=== PATIENT | female | born 1950 ===

== ENCOUNTER 2023-05-03 05:23 | Day surgery (SDC) | payer OTHER ==
[2023-04-27 08:28] LABS: PH,URINE 6.5 (5.0-8.0); URINE APPEARANCE Clear; URINE BILIRRUBIN Negative (NEGATIVE); URINE BLOOD Moderate; URINE COLOR Yellow; URINE GLUCOSE Negative (NEGATIVE); URINE LEUKOCYTE Trace; URINE NITRATE Negative; URINE PROTEIN Negative (NEGATIVE); URINE UROBILINOGEN 0.2 E.U./dl
[2023-04-27 08:31] LABS: URINE BACTERIA 355.4 uL (0.0-1933); URINE EPITHELIAL CELLS 37.5 uL (0.0-38.8); URINE RBC 99.4 uL (0.0-20.8); URINE WBC 21.4 uL (0.0-23.2)
[2023-04-27 08:37] LABS: HEMATOCRIT 35.1 % (36.0-45.00); MEAN CELL VOLUME 91.9 fL (80.00-100.00); PLATELET COUNT 264 K/uL (150-450); RED BLOOD COUNT 3.82 M/uL (4.00-6.00); RED CELL DISTRIBUTION WIDTH 13.7 % (11.5-14.5)
[2023-04-27 08:38] LABS: HEMOGLOBIN 11.6 g/dL (12.0-15.00); MEAN CORPUSCULAR HEMOGLOBIN 30.3 pg (27.00-32.0)
[2023-04-27 09:01] LABS: ALBUMIN 3.9 gm/dL (3.4-5.0); BILIRUBIN TOTAL 0.38 mg/dL (0.3-1.2); CALCIUM 9.4 mg/dL (8.5-10.1); CREATININE SERUM 0.7 mg/dL (0.55-1.02); GFR 82.49; GLOBULINA 3.3 G/DL (2.4-3.5); POTASSIUM 4.06 mEq/L (3.5-5.1); TOTAL PROTEIN 7.2 gm/dL (6.4-8.2)
[2023-04-27 09:03] LABS: INR 0.95; PARTIAL THROMBOPLASTIN TIME 27.9 SECONDS (22.0-34.0)
[~2023-05-03] VITALS: Ht 167.6 cm; Wt 58.1 kg
[~2023-05-03 05:23] MED LIST: ATORVASTATIN CA80 MG PO; TIROSINT75 MCG PO; [UNRECOGNIZED DRUG - OTHER] PO
== END 2023-05-03 12:40 | disposition home or self-care (01) ==
LOC: CIR.AMB 05:23
PROVIDERS: ATTEND Otolaryngology Otology & Neurotology
DX: H66.92 Otitis media, unspecified, left ear (principal); H72.92 Unspecified perforation of tympanic membrane, left ear; H74.02 Tympanosclerosis, left ear; H71.92 Unspecified cholesteatoma, left ear; I10 Essential (primary) hypertension